=== PATIENT | male | born 1965 | race Caucasian/White ===

== ENCOUNTER → 2017-03-17 | Outpatient (CLI) | payer MEDICAID | END | disposition home or self-care (01) | LOC: CFH 10:38 | PROVIDERS: ATTEND Physician Assistant | DX: B19.20 Unspecified viral hepatitis C without hepatic coma (principal) | CPT/HCPCS: 76700 ==

== ENCOUNTER → 2017-10-25 | Outpatient (CLI) | payer MEDICAID | END | disposition home or self-care (01) | LOC: RAD 10:25 | PROVIDERS: ATTEND Physician Assistant | DX: B18.2 Chronic viral hepatitis C (principal) | CPT/HCPCS: 76705 ==

== ENCOUNTER → 2020-02-27 | Outpatient (CLI) | payer MEDICAID ==
[~2020-02-27] MED LIST: OMNIPAQUE 350 MG/ML, 75ML BOTTLE ONE
== END | disposition home or self-care (01) ==
LOC: CFH 13:34
PROVIDERS: ATTEND Physician Assistant
DX: R91.8 Other nonspecific abnormal finding of lung field (principal); R77.2 Abnormality of alphafetoprotein; J98.4 Other disorders of lung; R74.8 Abnormal levels of other serum enzymes; E83.110 Hereditary hemochromatosis
CPT/HCPCS: 71260; Q9967